=== PATIENT | female | born 1945 | race Hispanic/Latino ===

== ENCOUNTER → 2019-06-03 | Outpatient (CLI) | payer OTHER, MEDICARE | END | disposition home or self-care (01) | LOC: RAH 14:03 | PROVIDERS: ATTEND Family Medicine | DX: Z12.31 Encounter for screening mammogram for malignant neoplasm of breast (principal) | CPT/HCPCS: 77067 ==

== ENCOUNTER → 2023-07-24 | Outpatient (CLI) | payer OTHER, MEDICARE ==
[~2023-07-24] MED LIST: AEC81 PO; AMOX1TAB16 PO; CLOP75TA32 PO; DOXY100C5 PO; FAMO20TA8 PO; LOSA25TA41 PO; METF-444 PO; METO25 PO; ROSU5TAB12 PO; SPIR25TA6 PO
== END | disposition home or self-care (01) ==
LOC: SHCH 09:57
PROVIDERS: ATTEND Internal Medicine Cardiovascular Disease
DX: I08.3 Combined rheumatic disorders of mitral, aortic and tricuspid valves (principal); I11.9 Hypertensive heart disease without heart failure; E11.9 Type 2 diabetes mellitus without complications; E78.5 Hyperlipidemia, unspecified
CPT/HCPCS: 93306

== ENCOUNTER 2023-10-16 09:43 | Emergency (ER) | payer OTHER, MEDICARE ==
[~2023-10-16] VITALS: Ht 157.5 cm; Wt 53.5 kg
[~2023-10-16 09:43] MED LIST changes: -ROSU5TAB12 PO; +ROSU5TAB43 PO
[2023-10-16 10:07] LABS: BASOPHILS # (AUTO) 0.05 K/uL (0.00-0.20); BASOPHILS % (AUTO) 0.4 % (0.0-5.0); EOSINOPHILS # (AUTO) 0.09 K/uL (0.00-0.70); EOSINOPHILS % (AUTO) 0.8 % (0.0-8.0); HEMATOCRIT 41.6 % (36-48); IMMATURE GRANULOCYTE ABSOLUTE 0.02 K/uL (0-1); LYMPHOCYTES # (AUTO) 2.7 K/uL (1.0-4.8); LYMPHOCYTES % (AUTO) 23.9 % (21.0-51.0); MEAN CORPUSCULAR HEMOGLOBIN 30.5 pg (27.0-33.0); MEAN CORPUSCULAR HGB CONC 33.4 g/dL (32.0-36.0); MEAN CORPUSCULAR VOLUME 91.4 fL (79-99); MONOCYTES # (AUTO) 0.5 K/uL (0.1-1.0); MONOCYTES % (AUTO) 4.5 % (3.0-13.0); NEUTROPHILS # (AUTO) 8.1 K/uL (1.8-7.7); NEUTROPHILS % (AUTO) 70.2 % (40.0-77.0); PLATELET COUNT (AUTO) 225 K/uL (130-400); RED BLOOD CELL COUNT(AUTO) 4.55 MIL/uL (4.00-5.50); RED CELL DISTRIBUTION WIDTH 13.6 % (11.0-15.5); WHITE BLOOD COUNT (AUTO) 11.5 K/uL (4.8-10.8)
[2023-10-16] MEDS: LACTATED RINGERS 1000ML 1,000 ML IV ONE (10:13)
[2023-10-16 10:17] LABS: CREATININE 1.3 mg/dL (0.5-1.0)
[2023-10-16 10:22] LABS: ALBUMIN 4.1 g/dL (3.5-5.0); BILIRUBIN,TOTAL 0.6 mg/dL (0.2-1.0); MAGNESIUM 2.2 mg/dL (1.80-2.40); TOTAL PROTEIN, SERUM 7.2 g/dL (6.0-8.3)
[2023-10-16 10:42] LABS: B-TYPE NATRIURETIC PEPTIDE 234 pg/mL (0-100)
[2023-10-16 10:55] LABS: APPEARANCE,URINE CLEAR (CLEAR); BILIRUBIN,URINE NEGATIVE (NEGATIVE); COLOR,URINE LIGHT-YELLOW (YELLOW); GLUCOSE, URINE (UA) NEGATIVE (NEGATIVE); KETONES,URINE NEGATIVE (NEGATIVE); LEUKOCYTE ESTERASE ,URINE NEGATIVE Leu/uL (NEGATIVE); NITRATE,URINE NEGATIVE (NEGATIVE); OCCULT BLOOD,URINE NEGATIVE (NEGATIVE); PH,URINE 5.5 (5.0-8.0); PROTEIN,URINE NEGATIVE (NEGATIVE); UROBILINOGEN,URINE 0.2 mg/dL (0.2-1.0)
[2023-10-16 10:57] LABS: ADD UA MICROSCOPIC NO
[2023-10-16] MEDS: ONDANSETRON 4MG INJ IVP ONE (12:12)
[2023-10-16] MEDS: MORPHINE 2 MG SYG IVP ONE ×2 (12:13→14:24)
[2023-10-16] MEDS: ACETAMINOPHEN 500 MG TABLET PO ONE (12:14)
[2023-10-16] MEDS ORDERED: CEPH500B PO (13:56)
[2023-10-16 14:13] VITALS: BP 145/84; PULSE 102; RESP 18; O2SAT 99
[2023-10-16] MEDS: BACITRACIN 1 EACH PACKET TP ONE (14:15)
[2023-10-16] MEDS: DIPH,PERTUSS(ACELL),TET VAC/PF 0.5 ML VIAL IM ONE (14:19)
== END 2023-10-16 15:25 | disposition home or self-care (01) ==
LOC: EDH 09:43
DX: S42.211A Unspecified displaced fracture of surgical neck of right humerus, initial encounter for closed fracture (principal); S01.81XA Laceration without foreign body of other part of head, initial encounter; R55 Syncope and collapse; E11.9 Type 2 diabetes mellitus without complications; I10 Essential (primary) hypertension; I25.10 Atherosclerotic heart disease of native coronary artery without angina pectoris; Z79.82 Long term (current) use of aspirin; Z79.84 Long term (current) use of oral hypoglycemic drugs; Z79.899 Other long term (current) drug therapy; Z95.5 Presence of coronary angioplasty implant and graft; Z98.890 Other specified postprocedural states; W18.39XA Other fall on same level, initial encounter; Y93.01 Activity, walking, marching and hiking; Y92.098 Other place in other non-institutional residence as the place of occurrence of the external cause; Y99.8 Other external cause status
CPT/HCPCS: 99285; 70450; 96374; 71045; 96375; 12013; 82550; 83735; 84484; 80053; 83880; 85025; 81003; 36415; 90715; 72170; 73030; 72125; 96376; 90471; 93005; J7120; J2270 ×2; J2405

== ENCOUNTER 2025-01-21 20:50 | Observation (INO) | payer OTHER, MEDICAID ==
[~2025-01-21] VITALS: Ht 160 cm; Wt 52.5 kg
[~2025-01-21 20:50] MED LIST changes: +CEPH500B PO; -ROSU5TAB43 PO; +ROSU5TAB51 PO
[2025-01-21 20:52] VITALS: TEMP 97.7
[2025-01-21 21:16] LABS: APPEARANCE,URINE CLEAR (CLEAR); GLUCOSE, URINE (UA) NEGATIVE (NEGATIVE); LEUKOCYTE ESTERASE ,URINE 75 Leu/uL (NEGATIVE); NITRATE,URINE NEGATIVE (NEGATIVE); OCCULT BLOOD,URINE +- (TRACE) (NEGATIVE)
[2025-01-21 21:18] LABS: ADD UA MICROSCOPIC YES
[2025-01-21 21:21] LABS: SQUAMOUS EPITHELIAL CELL,UR RARE /HPF (0-2)
[2025-01-21 21:28] LABS: IMMATURE GRANULOCYTE ABSOLUTE 0.02 K/uL (0-1); NUCLEATED RED BLOOD CELLS 0.0 % (0.0-0.19); PLATELET COUNT (AUTO) 190 K/uL (130-400); RED BLOOD CELL COUNT(AUTO) 4.36 MIL/uL (4.00-5.50); RED CELL DISTRIBUTION WIDTH 14.0 % (11.0-15.5); WHITE BLOOD COUNT (AUTO) 8.3 K/uL (4.8-10.8)
[2025-01-21 21:39] LABS: CREATININE 1.2 mg/dL (0.5-1.0); GLOMERULAR FILTR. RATE CALC 47.0 mL/min (>90); GLUCOSE,RANDOM 171.0 mg/dL (70-105); SODIUM SERUM 139.0 mmol/L (136-145); UREA NITROGEN, BLOOD 24.0 mg/dL (7-18)
[2025-01-21 21:49] LABS: ASPARTATE AMINOTRANSFERASE 17.0 U/L (10-37); CREATINE KINASE, TOTAL 132.0 U/L (21-232); TOTAL PROTEIN, SERUM 7.3 g/dL (6.0-8.3)
--- NOTE | 2025-01-21 22:35 | HMCIMG ---
EXAM: CR Chest, 1 View. CLINICAL HISTORY: COUGH COMPARISON: None provided. FINDINGS: LUNGS: There is no mass, infiltrate, or acute pulmonary abnormality. Mild right apical parenchymal scarring. Prominent interstitial markings bilaterally may reflect chronic interstitial lung disease. PLEURAL SPACES: No pleural effusion or pneumothorax. MEDIASTINUM: Cardiac size and mediastinal contours within normal limits. BONES: No aggressive appearing osseous lesion seen. IMPRESSION: 1. No acute cardiopulmonary findings. 2. Prominent interstitial markings bilaterally, possibly reflecting chronic interstitial lung disease. /[place]
--- NOTE | 2025-01-21 22:56 | ERN ---
General Chief Complaint: Painful Urination Stated Complaint: C/O SEEING INSECTS,WORMS. STATES BURNING WHEN VOI Time Seen by MD: 20:54 History of Present Illness Initial Comments 79-year-old female came in for dysuria. Allergies: Coded Allergies: No Known Drug Allergies (Unverified Allergy, Unknown, 01/28/16) Home Meds Active Scripts Cephalexin Monohydrate (Keflex) 500 Mg Cap, 500 MG PO TID for 7 Days, #21 CAP Prov:DYLON ESTRELLA MD 10/16/23 Amoxicillin/Potassium Clav (Amox Tr-K Clv 875-125 mg Tab) 875 Mg-125 Mg Tablet, 1 EACH PO BID for 5 Days, #10 TAB 0 Refills Prov:PORSHA OLIVAS [facility] 04/26/23 Doxycycline Hyclate (Doxycycline Hyclate) 100 Mg Capsule, 100 MG PO BID, #10 CAP 0 [facility] 04/26/23 Metoprolol Tartrate (Lopressor) 25 Mg Tab, 25 MG PO TID, #90 TAB 0 Refills [facility] 04/26/23 Famotidine (Famotidine) 20 Mg Tablet, 20 MG PO DAILY, #15 TAB 0 Refills Prov:[facility] 04/26/23 Aspirin (ASPIRIN 81 MG ECTAB) 81 Mg Ectab, 81 MG PO DAILY, #30 TAB.EC 0 Refills Prov:PORSHA OLIVAS [facility] 04/26/23 Reported Medications Rosuvastatin Calcium (Rosuvastatin Calcium) 5 Mg Tablet, 5 MG PO DAILY, TAB 04/22/23 Losartan Potassium (Losartan Potassium) 25 Mg Tablet, 25 MG PO DAILY, TAB 04/22/23 Clopidogrel Bisulfate (Clopidogrel) 75 Mg Tablet, 75 MG PO AM, TAB 05/03/22 Spironolactone (Spironolactone) 25 Mg Tablet, 25 MG PO DAILY, TAB 05/07/21 Metformin HCl (Metformin HCl) 500 Mg Tablet, 500 MG PO BID, TAB 04/24/21 Past Medical History Past Medical History: Diabetes-Type II, Hypertension Past Surgical History: Other Surgical History Other: CARDIAC STENT Family History Family History: Negative Social History Social History: Negative ROS Dictation Dysuria Physical Exam General Appearance: (+) no apparent distress Respiratory: (+) chest non-tender, (+) lungs clear Heart: (+) regular, (+) no gallop Gastrointestinal: (+) soft, (+) non-tender, (+) no organomegaly, (+) bowel sound present Results Laboratory and Microbiology Lab and Micro Result Laboratory Tests Test 01/21/25 21:03 01/21/25 21:22 Urine Color LIGHT-YELLOW (YELLOW) Urine Appearance CLEAR (CLEAR) Urine pH 5.5 (5.0-8.0) Urine Specific [place]er 1.019 (1.001-1.031) Urine Protein NEGATIVE mg/dL (NEGATIVE) Urine Glucose (UA) NEGATIVE mg/dL (NEGATIVE) Urine Ketones NEGATIVE mg/dL (NEGATIVE) Urine Occult Blood +- (TRACE) (NEGATIVE) H Urine Nitrate NEGATIVE (NEGATIVE) Urine Bilirubin NEGATIVE mg/dL (NEGATIVE) Urine Urobilinogen 0.2 mg/dL (0.2-1.0) Urine Leukocyte Esterase 75 Jose R/uL (NEGATIVE) H Urine RBC 2-5 /HPF (0-1) H Urine WBC 6-10 /HPF (0-1) H Urine Squamous Epithelial Cells RARE /HPF (0-2) Urine Bacteria None /HPF (None Seen) White Blood Count 8.3 K/uL (4.8-10.8) Red Blood Count 4.36 MIL/uL (4.00-5.50) Hemoglobin 13.3 g/dL (12.0-16.0) Hematocrit 40.7 % (36-48) Mean Corpuscular Volume 93.3 fL (79-99) Mean Corpuscular Hemoglobin 30.5 pg (27.0-33.0) Mean Corpuscular Hemoglobin Concent 32.7 g/dL (32.0-36.0) Red Cell Distribution Width 14.0 % (11.0-15.5) Platelet Count 190 K/uL (130-400) Mean Platelet Volume 11.5 fL (7.5-10.5) H Immature Granulocyte % (Auto) 0.2 % (0-1) Neutrophils (%) (Auto) 48.0 % (40.0-77.0) Lymphocytes (%) (Auto) 43.2 % (21.0-51.0) Monocytes (%) (Auto) 6.5 % (3.0-13.0) Eosinophils (%) (Auto) 1.6 % (0.0-8.0) Basophils (%) (Auto) 0.5 % (0.0-5.0) Neutrophils # (Auto) 4.0 K/uL (1.8-7.7) Lymphocytes # (Auto) 3.6 K/uL (1.0-4.8) Monocytes # (Auto) 0.5 K/uL (0.1-1.0) Eosinophils # (Auto) 0.13 K/uL (0.00-0.70) Basophils # (Auto) 0.04 K/uL (0.00-0.20) Absolute Immature Granulocyte (auto 0.02 K/uL (0-1) Nucleated Red Blood Cells 0.0 % (0.0-0.19) Sodium Level 139 mmol/L (136-145) Potassium Level 4.0 mmol/L (3.5-5.1) Chloride Level 105 mmol/L (101-111) Carbon Dioxide Level 25 mmol/L (21-32) Blood Urea Nitrogen 24 mg/dL (7-18) H Creatinine 1.2 mg/dL (0.5-1.0) H Glomerular Filtration Rate Calc 47 mL/min (>90) Random Glucose 171 mg/dL (70-105) H Total Calcium 8.6 mg/dL (8.5-10.1) Magnesium Level 2.10 mg/dL (1.80-2.40) Total Bilirubin 0.3 mg/dL (0.2-1.0) Aspartate Amino Transf (AST/SGOT) 17 U/L (10-37) Alanine Aminotransferase (ALT/SGPT) 23 U/L (12-78) Alkaline Phosphatase 88 U/L (50-136) Total Creatine Kinase 132 U/L (21-232) # Troponin I High Sensitivity 45 ng/L (4-50) Total Protein 7.3 g/dL (6.0-8.3) Albumin 3.9 g/dL (3.5-5.0) MDM MDM: Differential diagnosis: Rationale: Tests considered and ordered secondary to shared decision making include: labs, ECG and radiology Previous outside records reviewed: Old ER visits. Risk of complication and/or morbidity or mortality of patient management: None Medications-Per medication reconciliation Need for hospitalization: Patient does meet criteria for hospitalization. Need for emergency major/minor surgery: No There are no social concerns with this patient. Prescription drug management Prescriptions will include symptomatic care Patient's prior external medical records from other ER visits were reviewed by me as indicated. Prior testing and results from previous visits were reviewed. Prior tests were taken into account with medical decision making and resource utilization, independent historian/historians were used to obtain complete medical history. I independently interpreted the test that were performed, results were reviewed by me and considered findings on radiology if ordered. Medical management and examination interpretation discussions were had by me with other qualified healthcare professionals as indicated for the patient's care. ED Course Orders Procedure Category Date Status Time Urinalysis Profile LAB 01/21/25 Complete 20:58 12 Lead Ekg Tracing- EKG 01/21/25 Logged Technical 21:10 Cbc With Differential LAB 01/21/25 Complete 21:10 Comprehensive LAB 01/21/25 Complete Metabolic Panel 21:10 Creatine Kinase, Total LAB 01/21/25 Complete 21:10 Magnesium LAB 01/21/25 Complete 21:10 Troponin I High LAB 01/21/25 Complete Sensitivity 21:10 Chest 1vw RAD 01/21/25 Resulted 21:10 Culture Urine GIACOMO 01/21/25 In Process 21:18 Ceftriaxone 1g Vial PHA 01/21/25 In Process (Rocephine 1g Inj) 23:00 Ondansetron 4mg Inj PHA 01/21/25 In Process (Zofran 4mg Inj) 23:00 Famotidine 20mg Vial PHA 01/21/25 In Process (Pepcid 20mg Vial) 23:00 Current Medications Medications (Trade) Dose Ordered Sig/Trino Route PRN Reason Start Time Stop Time Status Last Admin Dose Admin Ceftriaxone Sodium (ROCEphine 1G INJ) 1 gm ONCE ONCE IVPB 01/21/25 23:00 01/21/25 23:01 Famotidine (Pepcid 20mg Vial) 20 mg ONCE ONCE IV 01/21/25 23:00 01/21/25 23:01 Ondansetron HCl (zoFRAN 4MG INJ) 4 mg ONCE ONCE IVP 01/21/25 23:00 01/21/25 23:01 Vital Signs Date Time Temp Pulse Resp B/P (MAP) Pulse Ox O2 Delivery O2 Flow Rate FiO2 01/21/25 20:52 97.7 99 20 154/76 100 Room Air DX & DISP Disposition: Inpatient Departure Impression: Primary Impression: UTI (urinary tract infection) Condition: Stable Referrals: MASSIEL LUCIO M.D. (PCP) LULY ZAVALA MD Jan 21, 2025 22:56
[2025-01-21] MEDS: FAMOTIDINE 20MG VIAL IV ONE (23:05)
[2025-01-21] MEDS ORDERED: PoTASSium chl 10% ELIXIR 20MEQ 20 MEQ/15 ML UDCUP PO PRN (23:30)
[2025-01-21] MEDS ORDERED: HYDROcodone/APAP 5/325 1 TAB TABLET PO PRN (23:30)
[2025-01-21] MEDS ORDERED: ALBUTEROL 0.083% 2.5 MG/3 ML INH IH PRN (23:30)
[2025-01-21] MEDS ORDERED: PoTASSium chloRIDE 20MEQ ER 20 MEQ ERTAB PO PRN (23:30)
[2025-01-22] MEDS: 0.9%NACL 1000ML 1,000 ML IV SCH (00:15)
--- NOTE | 2025-01-22 05:06 | EKG ---
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
[2025-01-22 06:55] LABS: IMMATURE GRANULOCYTE ABSOLUTE 0.02 K/uL (0-1); NUCLEATED RED BLOOD CELLS 0.0 % (0.0-0.19); PLATELET COUNT (AUTO) 182 K/uL (130-400); RED BLOOD CELL COUNT(AUTO) 4.32 MIL/uL (4.00-5.50); RED CELL DISTRIBUTION WIDTH 14.1 % (11.0-15.5); WHITE BLOOD COUNT (AUTO) 7.2 K/uL (4.8-10.8)
[2025-01-22 07:09] LABS: CREATININE 1.0 mg/dL (0.5-1.0); GLOMERULAR FILTR. RATE CALC 58.0 mL/min (>90); GLUCOSE,RANDOM 133.0 mg/dL (70-105); PHOSPHORUS 3.1 mg/dL (2.5-4.9); SODIUM SERUM 139.0 mmol/L (136-145); UREA NITROGEN, BLOOD 18.0 mg/dL (7-18)
[2025-01-22 07:19] VITALS: PULSE 81; RESP 18; O2SAT 94
[2025-01-22 08:00] VITALS: BP 124/59; PULSE 89; RESP 17; O2SAT 96
[2025-01-22] MEDS ORDERED: HYDROcodone/APAP 5/325 1 TAB TABLET PO PRN ×2 (11:30)
--- NOTE | 2025-01-22 11:41 | HP ---
[facility] HISTORY & PHYSICAL Date Patient Seen: Jan 22, 2025 Time of Visit: 11:32 Supervising Physician: [ Dr Paredes Primary Care Physician: [Laisha Pate Outpatient Specialists: [ ] Inpatient Consults: [ ] PROBLEM LIST: Acute cystitis Type 2 diabetes Essential hypertension Hyperlipidemia CAD with stents Chronic systolic congestive heart failure without exacerbation Chronic COPD without exacerbation Fibrosis CKD stage Secondhand smoke exposure HPI: Mrs. Jamison Estrella is a 79 year old female with a past medical history of hypertension, type 2 diabetes, hyperlipidemia, CAD with stents, COPD, CKD presented to the emergency room with a chief complaint of painful urination with an onset several days ago. Patient reports she went to go see her eye doctor yesterday and was told she has cataracts and we will require surgery in March. Patient reports he has been having painful urination for several days however has progressively worsened that her grandson became fearful and brought her to the ED for further evaluation. Patient denies fevers, chills, chest pain, shortness on breath, nausea, vomiting, abdominal pain. Admission vital signs are heart rate 77 beats per minute, respiratory rate 16 breaths per minute, blood pressure 138/70, O2 sat 94% on room air. Admission labs showed normal CBC. Chemistries show an elevated creatinine of 1.2 which has improved within normal with IV fluids. UA is positive for leukocyte est erase. Admission chest x-ray shows no acute cardiopulmonary findings. Patient will be admitted for acute cystitis. Patient was administered Rocephin IV ED. PAST MEDICAL HX: see above PAST SURGICAL HX: noncontributory SOCIAL HISTORY: No tobacco, ETOH, or illicit drug use Coded Allergies: No Known Drug Allergies (Unverified Allergy, Unknown, 01/28/16) REVIEW OF SYSTEMS: 12 point ROS reviewed with patient. Pertinent positives mentioned above. Otherwise negative. PHYSICAL EXAM: GENERAL: alert, weak, awake oriented x 3 HEENT: EOMI, Sclera non icteric, moist mucosa NECK: Supple, no JVD, trachea midline LUNGS: Clear breath sounds bilaterally. No wheezes HEART: Regular rate and rhythm. Normal S1 and S2, without murmurs ABD: Abdomen soft, nontender. Bowel sounds present EXT: No clubbing cyanosis or edema NEURO: Alert and oriented to person, follows commands Vital Signs (last 8hr) Date Time Temp Pulse Resp B/P (MAP) Pulse Ox O2 Delivery O2 Flow Rate FiO2 11/5/25 08:00 89 17 124/59 96 Room Air 0.0 01/22/25 08:00 96 Room Air* 0 21 01/22/25 07:19 81 18 N/A Room Air 01/22/25 06:44 90 18 120/51 94 Room Air* 0 21 01/22/25 05:02 77 16 138/55 99 Room Air* 0 21 01/22/25 03:37 79 16 127/60 94 Room Air* 0 21 LABS: Hematology Labs: Test 01/22/25 06:38 Range/Units White Blood Count 7.2 4.8-10.8 K/uL Red Blood Count 4.32 4.00-5.50 MIL/uL Hemoglobin 13.1 12.0-16.0 g/dL Hematocrit 40.4 36-48 % Mean Corpuscular Volume 93.5 79-99 fL Mean Corpuscular Hemoglobin 30.3 27.0-33.0 pg Mean Corpuscular Hemoglobin Concent 32.4 32.0-36.0 g/dL Red Cell Distribution Width 14.1 11.0-15.5 % Platelet Count 182 130-400 K/uL Mean Platelet Volume 11.4 H 7.5-10.5 fL Immature Granulocyte % (Auto) 0.3 0-1 % Neutrophils (%) (Auto) 55.4 40.0-77.0 % Lymphocytes (%) (Auto) 36.1 21.0-51.0 % Monocytes (%) (Auto) 5.7 3.0-13.0 % Eosinophils (%) (Auto) 2.1 0.0-8.0 % Basophils (%) (Auto) 0.4 0.0-5.0 % Neutrophils # (Auto) 4.0 1.8-7.7 K/uL Lymphocytes # (Auto) 2.6 1.0-4.8 K/uL Monocytes # (Auto) 0.4 0.1-1.0 K/uL Eosinophils # (Auto) 0.15 0.00-0.70 K/uL Basophils # (Auto) 0.03 0.00-0.20 K/uL Absolute Immature Granulocyte (auto 0.02 0-1 K/uL Nucleated Red Blood Cells 0.0 0.0-0.19 % Chemistry Labs: Test 01/22/25 11:15 11/5/25 06:38 01/21/25 21:22 Range/Units Whole Blood Glucose 109 70-110 MG/DL Sodium Level 139 136-145 mmol/L Potassium Level 4.1 3.5-5.1 mmol/L Chloride Level 106 101-111 mmol/L Carbon Dioxide Level 25 21-32 mmol/L Blood Urea Nitrogen 18 7-18 mg/dL Creatinine 1.0 0.5-1.0 mg/dL Glomerular Filtration Rate Calc 58 >90 mL/min Random Glucose 133 H 70-105 mg/dL Total Calcium 8.3 L 8.5-10.1 mg/dL Phosphorus Level 3.1 2.5-4.9 mg/dL Magnesium Level 2.00 1.80-2.40 mg/dL Total Bilirubin 0.3 0.2-1.0 mg/dL Aspartate Amino Transf (AST/SGOT) 17 10-37 U/L Alanine Aminotransferase (ALT/SGPT) 23 12-78 U/L Alkaline Phosphatase 88 50-136 U/L Total Creatine Kinase 132 # 21-232 U/L Troponin I High Sensitivity 45 4-50 ng/L Total Protein 7.3 6.0-8.3 g/dL Albumin 3.9 3.5-5.0 g/dL DIAGNOSTICS / RADIOLOGY RESULTS: PATIENT: JAMISON ESTRELLA MR#: [id number] : 1945 SEX: F AGE: 79 LOCATION: [facility] ORDER 10 STATUS: [facility] REPORT#: [id number] SERVICE 09 REASON: COUGH ORDERING PHYSICIAN: LOLLY ROTHMAN [facility] PROCEDURE: CXR1VW - CHEST 1VW EXAM: CR Chest, 1 View. CLINICAL HISTORY: COUGH COMPARISON: None provided. FINDINGS: LUNGS: There is no mass, infiltrate, or acute pulmonary abnormality. Mild right apical parenchymal scarring. Prominent interstitial markings bilaterally may reflect chronic interstitial lung disease. PLEURAL SPACES: No pleural effusion or pneumothorax. MEDIASTINUM: Cardiac size and mediastinal contours within normal limits. BONES: No aggressive appearing osseous lesion seen. IMPRESSION: 1. No acute cardiopulmonary findings. 2. Prominent interstitial markings bilaterally, possibly reflecting chronic interstitial lung disease. /[place] DICTATED BY: SKYLER JAY Jr., MD DATE: 01/21/252333 ELECTRONICALLY SIGNED BY: SKYLER JAY Jr., MD DATE: 01/21/252333 PLAN Supplemental oxygen as needed Patient currently on room air Rocephin2 g IV daily Follow urine cultures and modify antibiotics accordingly PT as tolerated Out of bed to chair Glucometer checks a.c. HS regular insulin sliding scale Diabetic diet NEURO: Minimize central acting medications as possible. Maintain fall precautions, adequate lighting during the day PULMONARY: Supplemental 02 as needed. Maintain aspiration precautions at all times CARDIOVASCULAR: Follow hemodynamics. Vital signs per facility protocol GI & NUTRITION: Continue with nutritional support. Continue stool softeners and laxatives as needed. KIDNEYS & ELECTROLYTES: Strict monitoring of intake, output and overall fluid balance. Avoid nephrotoxic medications to the extent possible. Medications to be dosed according to renal function. Monitor electrolytes and replace as needed ENDOCRINE: Maintain blood glucose between 100-180 at all times. Hypoglycemia protocol in place INFECTIOUS DISEASE: Trend temperature, WBC and procalcitonin level Follow cultures, deescalate antibiotics as soon as possible. Panculture if new onset fever ONCOLOGY/HEMATOLOGY/COAGULATION: Monitor for s/s of bleeding Monitor hemoglobin, coagulation studies as needed SKIN: Pressure ulcer prevention per facility protocol Specialty mattress ORTHO/REHAB: Continue PT/OT Prophylaxis: Continue GI and DVT prophylaxis Code Status: Full Resuscitation Disposition: Home ATTESTATION BY PHYSICIAN I reviewed the documentation, medical decision making, and treatment plan as noted by the mid-level provider above. I agree with the findings and plan of care. Young Paredes MD,JAKE N ELECTRIC MOTOR REBUILDER Jan 22, 2025 11:41
[2025-01-22] MEDS ORDERED: CEFU500T67 PO (11:44)
--- NOTE | 2025-01-22 11:46 | DS ---
[facility] DISCHARGE SUMMARY Date Patient Seen: Jan 22, 2025 Time of Visit: 11:45 Supervising Physician: [Dr Paredes Primary Care Physician: Alma Pate Outpatient Specialists: [ ] Inpatient Consults: [ ] PROBLEM LIST: Acute cystitis Type 2 diabetes Essential hypertension Hyperlipidemia CAD with stents Chronic systolic congestive heart failure without exacerbation Chronic COPD without exacerbation Fibrosis CKD stage Secondhand smoke exposure HOSPITAL COURSE: HPI (per admitting provider) Mrs. Melida Mcfarlane is a 79 year old female with a past medical history of hypertension, type 2 diabetes, hyperlipidemia, CAD with stents, COPD, CKD presented to the emergency room with a chief complaint of painful urination with an onset several days ago. Patient reports she went to go see her eye doctor y ester and was told she has cataracts and we will require surgery in March. Patient reports he has been having painful urination for several days however has progressively worsened that her grandson became fearful and brought her to the ED for further evaluation. Patient denies fevers, chills, chest pain, shortness on breath, nausea, vomiting, abdominal pain. Admission vital signs are heart rate 77 beats per minute, respiratory rate 16 breaths per minute, blood pressure 138/70, O2 sat 94% on room air. Admission labs showed normal CBC. Chemistries show an elevated creatinine of 1.2 which has improved within normal with IV fluids. UA is positive for leukocyte esterase. Admission chest x-ray shows no acute cardiopulmonary findings. Patient will be admitted for acute cystitis. Patient was administered Rocephin IV ED. Today patient is seen sitting up in stretcher in the ED with no signs of acute distress. Patient reports dysuria has resolved. Patient has remained afebrile and labs are within normal limits. Patient was administered 2 doses of IV Rocephin. Patient has been advised to follow up with PCP in the next 2-3 days to follow up with urine cultures. Patient has been advised to continue oral antibiotics as prescribed. Patient verbalized understanding. Vital signs are stable. Labs are within normal limits. Medication reconciliation has been completed. New prescriptions have been sent to patient's pharmacy. Education regarding current diagnosis been provided to the patient. All questions have been answered. Patient to be discharged home. 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 PCP notified of patients admission, hospital course and discharge. New Medications: Cefuroxime Axetil (Cefuroxime) 500 Mg Tablet 1 TAB PO BID for 10 Days, #20 TAB 0 Refills Continued Medications: Aspirin (Aspirin 81 Mg Ectab) 81 Mg Ectab 81 MG PO DAILY, #30 TAB.EC 0 Refills Clopidogrel Bisulfate (Clopidogrel) 75 Mg Tablet 75 MG PO AM, TAB Famotidine (Famotidine) 20 Mg Tablet 20 MG PO DAILY, #15 TAB 0 Refills Losartan Potassium (Losartan Potassium) 25 Mg Tablet 25 MG PO DAILY, TAB Metformin HCl (Metformin HCl) 500 Mg Tablet 500 MG PO BID, TAB Metoprolol Tartrate (Lopressor) 25 Mg Tab 25 MG PO TID, #90 TAB 0 Refills Rosuvastatin Calcium (Rosuvastatin Calcium) 5 Mg Tablet 5 MG PO DAILY, TAB Spironolactone (Spironolactone) 25 Mg Tablet 25 MG PO DAILY, TAB Discontinued Medications: Amoxicillin/Potassium Clav (Amox Tr-K Clv 875-125 mg Tab) 875 Mg-125 Mg Tablet 1 EACH PO BID for 5 Days, #10 TAB 0 Refills Cephalexin Monohydrate (Keflex) 500 Mg Cap 500 MG PO TID for 7 Days, #21 CAP Doxycycline Hyclate (Doxycycline Hyclate) 100 Mg Capsule 100 MG PO BID, #10 CAP 0 Refills PHYSICAL EXAM: GENERAL: alert, weak, awake oriented x 3 HEENT: EOMI, Sclera non icteric, moist mucosa NECK: Supple, no JVD, trachea midline LUNGS: Clear breath sounds bilaterally. No wheezes HEART: Regular rate and rhythm. Normal S1 and S2, without murmurs ABD: Abdomen soft, nontender. Bowel sounds present EXT: No clubbing cyanosis or edema NEURO: Alert and oriented to person, follows commands FOLLOW-UP: Follow-up with PCP in 2-3 days RECOMMENDATIONS: See Discharge Instructions This case was seen and discussed with my supervising physician. More than 30 minutes spent on discharge process, including evaluation of the patient, discussion with nursing staff, medication reconciliation and follow-up appo intments ATTESTATION BY PHYSICIAN I reviewed the documentation, medical decision making, and treatment plan as noted by the mid-level provider above. I agree with the findings and plan of care. Young Paredes MD, ECTOR N JAVA PROGRAMMING PROFESSOR Jan 22, 2025 11:46
[2025-01-22 12:01] VITALS: BP 137/68; PULSE 89; RESP 17
--- NOTE | 2025-01-22 12:31 | NUR ---
discharge patient given printed discharge instructions, educated regarding diet, activity, medications, follow up visits, signs and symptoms to report/return to ER. patient understood.
== END 2025-01-22 12:06 | disposition home or self-care (01) ==
LOC: EDH 20:50 → UNDOADMOB 23:20 → INTOOBSV 23:20 → EDHIP 23:20
PROVIDERS: ADMIT Internal Medicine Pulmonary Disease; ATTEND Internal Medicine Pulmonary Disease
DX: N30.00 Acute cystitis without hematuria (principal); I13.0 Hypertensive heart and chronic kidney disease with heart failure and stage 1 through stage 4 chronic kidney disease, or unspecified chronic kidney disease; E11.22 Type 2 diabetes mellitus with diabetic chronic kidney disease; I50.22 Chronic systolic (congestive) heart failure; N18.9 Chronic kidney disease, unspecified; I25.10 Atherosclerotic heart disease of native coronary artery without angina pectoris; E78.5 Hyperlipidemia, unspecified; E11.65 Type 2 diabetes mellitus with hyperglycemia; J44.9 Chronic obstructive pulmonary disease, unspecified; Z77.22 Contact with and (suspected) exposure to environmental tobacco smoke (acute) (chronic); Z95.5 Presence of coronary angioplasty implant and graft; Z79.899 Other long term (current) drug therapy; Z98.890 Other specified postprocedural states
CPT/HCPCS: 96374; 96375; 99285; 82550; 83735 ×2; 84484; 80053; 85025 ×2; 87086; 81001; 36415 ×2; 71045; 93005; 84100; 80048; 82948; J1308; J0696; J2405; G0378 ×2; J7030